=== PATIENT | female | born 1990 | race Caucasian/White ===

== ENCOUNTER 2019-07-08 10:30 | Inpatient (IN) | payer OTHER ==
[~2019-07-08 10:30] MED LIST: CITRIC ACID/SODIUM CITRATE 30 ML UNIT-DOSE CUP PO ONE; ELECTROLYTE-148 SOLN 1,000 ML IV SCH
[2019-07-08] MEDS: ELECTROLYTE-148 SOLN 1,000 ML IV SCH (11:15)
[2019-07-08 11:23] VITALS: BMI 35.4
[2019-07-08 12:07] LABS: BASO % 0.2 % (0-2.0); EOS % 1.3 % (0-4.5); HEMATOCRIT 37.9 % (32.4-45.2); HEMOGLOBIN 13.1 GM/dL (10.7-15.3); LYMPH % 13.9 % (8-40); MCH 28.3 pg (25.7-33.7); MCHC 34.5 g/dl (32.0-36.0); MEAN CELL VOLUME 82.2 fl (80-96); MEAN PLT VOLUME 8.7 fl (7.5-11.1); MONO % 7.2 % (3.8-10.2); NEUT % 77.4 % (42.8-82.8); PLATELET COUNT 179 K/MM3 (134-434); RBC 4.62 M/mm3 (3.60-5.2); WHITE BLOOD COUNT 10.8 K/mm3 (4.0-10.0)
[2019-07-08 12:24] LABS: BILIRUBIN,TOTAL 0.4 mg/dL (0.2-1); BLOOD UREA NITROGEN 6.7 mg/dL (7-18); CALCIUM 9.2 mg/dL (8.5-10.1); CREATININE 0.4 mg/dL (0.55-1.3); TOT PROT 6.7 g/dl (6.4-8.2)
[2019-07-08] MEDS ORDERED: morphine SULFATE/PF 0.5 MG/ML (2cc Syringe - QUVA) EP ONE (12:24)
[2019-07-08 14:20] LABS: INR 0.99 (0.83-1.09); PROTHROMBIN TIME (PATIENT) 11.7 SEC (9.7-13.0)
[2019-07-08 14:22] LABS: ACTIVATED PTT 28.9 SECONDS (25.2-36.5)
[2019-07-08] MEDS ORDERED: morphine SULFATE/PF 0.5 MG/ML (2cc Syringe - QUVA) ONE (15:37)
[2019-07-08] MEDS ORDERED: ceFAZolin SODIUM 1 GM VIAL ONE (15:38)
[2019-07-08] MEDS ORDERED: KETOROLAC TROMETHAMINE 30 MG/1 ML VIAL ONE ×2 (16:11→17:16)
[2019-07-08] MEDS ORDERED: OXYTOCIN 10 UNITS/ML VIAL ONE (16:46)
[2019-07-08] MEDS ORDERED: OXYTOCIN 20 UNITS in 0.9% NS 20 UNIT/1,000 ML INFUS.BAG IV ONE (17:05)
[2019-07-08] MEDS: OXYTOCIN 20 UNITS in 0.9% NS 20 UNIT/1,000 ML INFUS.BAG IV SCH (17:10)
[2019-07-08] MEDS ORDERED: ONDANSETRON 4 MG/2 ML VIAL ONE ×2 (17:17→18:50)
[2019-07-08] MEDS ORDERED: oxyCODONE HCL 5 MG TABLET PO PRN (17:19)
[2019-07-08] MEDS ORDERED: METHYLERGONOVINE MALEATE 0.2 MG/1 ML AMP IM PRN (17:19)
[2019-07-08] MEDS ORDERED: IBUPROFEN 800 MG/8 ML IJ IVPB PRN (17:19)
[2019-07-08] MEDS: ONDANSETRON 4 MG/2 ML VIAL IVPUSH PRN ×2 (17:25→18:55)
--- NOTE | 2019-07-08 17:27 | HP ---
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: No: Alzheimer's, CVA, Dementia, Migraine, Multiple Sclerosis, Peripheral Neuropathy, Parkinson's, Seizure, Syncope, TIA, Vertigo, Other Cardiovascular: No: AFIB, Aneurysm, Aortic Insufficiency, Aortic Stenosis, CAD, CHF, Deep Vein Thrombosis, HTN, Hyperlipdemia, MT, Mitral Insufficiency, Mitral Stenosis, Murmur, Pulmonary Hypertension, Other Pulmonary: No: Asthma, Bronchitis, Cancer, COPD, O2 Dependent, Pneumonia, Previously Intubated, Pulmonary Embolus, Pulmonary Fibrosis, Sleep Apnea, Other Gastrointestinal: No: Ascites, Cancer, Constipation, Crohn's Disease, Diverticulitis, Diverticulosis, Esophageal Varices, Gastritis, GERD, GI Bleed, Hemorrhoids, Hiatal Hernia, Inflamatory Bowel Disease, Irritable Bowel Disease, Pancreatitis, Peptic Ulcer Disease, Ulcerative Colitis, Other Hepatobiliary: No: Cirrhosis, Cholelithiasis, Cholecystitis, Choledocholithiasis , Hepatitis A, Hepatitis B, Hepatitis C, Other Renal/: No: Renal Failure, Renal Inusuff, BPH, Cancer, Hematuria, Hemodialysis , Neurogenic Bladder, Renal Calculi, UTI, Other Reproductive: No: Ectopic , Endometriosis, Fibroids, PID, Polycystic Ovary Syndrome, Postmenopausal, Other ...: 2 ...Para: 1 ...Term: 1 ...: 0 ...Spon : 0 ...Induced : 0 ...Multiple Gestation: 0 ... Weeks Gestation by Dates: 36.2 ...EDC by Dates: 08/03/19 Heme/Onc: No: Anemia, B12 Deficiency, Bleeding Disorder, Cancer, Current Chemotherapy, Current Radiation Therapy, Hemochromatosis, Hypercoaguable State, Myeloproliferative Synd, Sickle Cell Disease, Sickle Cell Trait, Thrombocytopenia, Other Infectious Disease: No: AIDS, C-Diff, Herpes Zoster, HIV, MRSA, STD's, Tuberculosis, VREF, Other Psych: No: Addictions, Anxiety, Bipolar, Depression, Panic, Psychosis, Schizophrenia, Other Musculoskeletal: No: Bursitis, Chronic low back pain, Hemiparesis, Hemiplegia, Osteoarthritis, Paraplegia, Other Rheumatology: No: Fibromyalgia, Gout, Lupus, Rheumatoid Arthritis, Sarcoidosis, Vasculitis, Other ENT: No: Allergic Rhinitis, Sinusitis, Other Endocrine: No: Raymond's Disease, Lisa's Disease, Diabetes Insipidus, Diabetes Mellitus, Hyperparathyroidism, Hyperthyroidism, Hypothyroidism, Osteopenia, SIADH, Other Dermatology: No: Basal Cell, Cellulitis, Eczema, Melanoma, Psoriasis, Squamous Cell, Other - Past Surgical History Past Surgical History: No: None, AAA Repair, AICD, Amputation, Appendectomy, Arthrosocopy, AV Fistula/Graft, Bariatric Surgery, Breast Biopsy, Bypass, CABG, Carotid Endarterectomy, Cataract Removal, Cholecystectomy, Colectomy, Colonoscopy, Colostomy, Craniotomy, , Cystectomy, Hernia Repair, Hysterectomy, Ileal Conduit, Ileosotomy, Joint Replacement, Kidney Transplant, Laminectomy, Liver Transplant, Mastectomy, Nephrectomy, Oopherectomy, Orchiectomy, Permanent Pacemaker, Prostatectomy, Splenectomy, Stent, Thoracotomy , TURP, Tonsillectomy, Tubal Ligation, Upper Endoscopy, Valve Replacement, Vasectomy, Vein Stripping/Ligation Hx Myomectomy: No Hx Transabdominal Cerclage: No - Advance Directives Advance Directives: Yes: Living Will - Smoking History Smoking history: Never smoked Have you smoked in the past 12 months: No - Alcohol/Substance Use Hx Alcohol Use: No History of Substance Use: reports: None - Social History Usual Living Arrangement: Yes: With Spouse Do you think of yourself as: Straight/Heterosexual ADL: Independent History of Recent Travel: No Home Medications - Allergies Allergies/Adverse Reactions: Allergies Allergy/AdvReac Type Severity Reaction Status Date / Time No Known Allergies Allergy Verified 07/08/19 11:02 - Home Medications Home Medications: Ambulatory Orders Vitamins (Sjr) - 1 tab PO DAILY 07/08/19 Family Medical History Family History: Denies Review of Systems - Review of Systems Constitutional: reports: No Symptoms Eyes: reports: No Symptoms HENT: reports: No Symptoms Neck: reports: No Symptoms Cardiovascular: reports: No Symptoms Respiratory: reports: No Symptoms Gastrointestinal: reports: No Symptoms Genitourinary: reports: No Symptoms Breasts: reports: No Symptoms Reported Musculoskeletal: reports: No Symptoms Integumentary: reports: No Symptoms Neurological: reports: No Symptoms Endocrine: reports: No Symptoms Hematology/Lymphatic: reports: No Symptoms Psychiatric: reports: No Symptoms Physical Exam - Maternity Vital Signs: Vital Signs Temperature 98.3 F 07/08/19 10:45 Pulse Rate 88 07/08/19 10:45 Respiratory Rate 18 07/08/19 10:45 Blood Pressure 131/75 07/08/19 10:45 O2 Sat by Pulse Oximetry (%) Constitutional: Yes: Well Nourished, No Distress, Calm Eyes: Yes: WNL, Conjunctiva Clear, EOM Intact HENT: Yes: WNL, Atraumatic, Normocephalic Neck: Yes: WNL, Supple, Trachea Midline Cardiovascular: Yes: WNL, Regular Rate and Rhythm Lungs: Clear to auscultation Breast(s): Yes: WNL - Abdominal Exam/OB Fundal Height: 36 Number of Fetuses: Single Presentation: Vertex Contractions: Yes Regularity: Regular Intensity: Mod/Strong Monitor Mode: External Heart Rate (range): 130 Heart Rate Location: [facility] Category: I Accelerations: None Decelerations: None - Vaginal Exam/OB Vaginal Bleediing: No Speculum Exam: No Dilatation (cm): 3 Effacement (%): 60 Amniotic Membrane Status: Intact Presentation: Vertex/Position Station: -2 - Physical Exam Musculoskeletal: Yes: WNL Extremities: Yes: WNL Edema: Yes Edema: LUE: 1+, RUE: 1+, LLE: 1+, RLE: 1+ Integumentary: Yes: WNL Deep Tendon Reflex Grade: Normal +2 ...Motor Strength: WNL Psychiatric: Yes: WNL, Alert, Oriented - Labs Lab Results: CBC, BMP 07/08/19 11:30 07/08/19 11:23 Hemorrhage Risk Assessment - Risk Factors Medium Risk Factors: Yes: None High Risk Factors: Yes: None Risk Score: 1 Risk Level: Medium Risk Assessment/Plan for repeat lt c s , in active labor, and srom in the l and d
--- NOTE | 2019-07-08 17:28 | OP ---
Operative Note - Note: Operative Date: 07/08/19 Pre-Operative Diagnosis: repeat c s in labor, and srom Operation: repeat lt c s Findings: n/ a Post-Operative Diagnosis: Same as Pre-op Surgeon: Tk Small Lieutenant Colonel: Bartolome Anguiano Anesthesiologist/COMMISSIONER CONSERVATION OF RESOURCES: Nabeel Bishop Anesthesia: Spinal Estimated Blood Loss (mls): 500 (no complications ) Operative Report Dictated: Yes
[2019-07-08] MEDS ORDERED: KETOROLAC TROMETHAMINE 30 MG/1 ML VIAL IVPUSH ONE (17:36)
[2019-07-09] MEDS: ACETAMINOPHEN 325 MG TABLET (FP) PO PRN ×3 (05:11→21:36)
[2019-07-09] MEDS: SIMETHICONE 80 MG TAB.CHEW (FP) PO PRN ×3 (05:11→21:35)
[2019-07-09] MEDS: OXYTOCIN 20 UNITS in 0.9% NS 20 UNIT/1,000 ML INFUS.BAG IV SCH ×2 (06:54→19:33)
--- NOTE | 2019-07-09 08:21 | PN ---
Progress Note (short form) - Note Progress Note: Anesthesia/pain Pt seen and examined S:Alert and oriented, comfortable O: Vital Signs Temperature 98.7 F 07/09/19 05:01 Pulse Rate 79 07/09/19 05:01 Respiratory Rate 20 07/09/19 05:56 Blood Pressure 111/54 L 07/09/19 05:01 O2 Sat by Pulse Oximetry (%) 100 07/08/19 18:40 CBC, BMP 07/08/19 11:30 07/08/19 11:23 A/P: s/p c section Doing well post op Continue current care Azeem Prutet MD
[2019-07-09 08:31] LABS: BASO % 0.2 % (0-2.0); EOS % 0.5 % (0-4.5); HEMATOCRIT 35.1 % (32.4-45.2); HEMOGLOBIN 11.9 GM/dL (10.7-15.3); LYMPH % 9.1 % (8-40); MCH 27.9 pg (25.7-33.7); MCHC 33.7 g/dl (32.0-36.0); MEAN CELL VOLUME 82.8 fl (80-96); MEAN PLT VOLUME 8.4 fl (7.5-11.1); MONO % 8.1 % (3.8-10.2); NEUT % 82.1 % (42.8-82.8); PLATELET COUNT 159 K/MM3 (134-434); RBC 4.24 M/mm3 (3.60-5.2); WHITE BLOOD COUNT 11.6 K/mm3 (4.0-10.0)
--- NOTE | 2019-07-09 08:50 | PN ---
Post Progress Note Post Day: 1 Type of Delivery: Repeat C/S Vital Signs: Vital Signs Temperature 98.7 F 07/09/19 05:01 Pulse Rate 79 07/09/19 05:01 Respiratory Rate 20 07/09/19 05:56 Blood Pressure 111/54 L 07/09/19 05:01 O2 Sat by Pulse Oximetry (%) 100 07/08/19 18:40 Breast Exam: Yes: Soft Uterus: Yes: Fundus Firm, Fundus below umbilicus, Non-tender Incision: Yes: Dressing dry and intact, Sutures intact Abdomen/GI: Yes: Abdomen soft, Passing flatus, Tolerating PO Lochia: Yes: Serosa Lochia, amount: Small Extremities: Yes: Calves non-tender Perineum: Yes: Intact Activity: Ambulating (doing well, will be oob this am ) - Labs Labs: CBC WBC 10.8 K/mm3 (4.0-10.0) H 07/08/19 11:30 RBC 4.62 M/mm3 (3.60-5.2) 07/08/19 11:30 Hgb 13.1 GM/dL (10.7-15.3) 07/08/19 11:30 Hct 37.9 % (32.4-45.2) 07/08/19 11:30 MCV 82.2 fl (80-96) 07/08/19 11:30 MCH 28.3 pg (25.7-33.7) 07/08/19 11:30 MCHC 34.5 g/dl (32.0-36.0) 07/08/19 11:30 RDW 14.0 % (11.6-15.6) 07/08/19 11:30 Plt Count 179 K/MM3 (134-434) 07/08/19 11:30 MPV 8.7 fl (7.5-11.1) 07/08/19 11:30 Absolute Neuts (auto) 8.4 K/mm3 (1.5-8.0) H 07/08/19 11:30 Neutrophils % 77.4 % (42.8-82.8) 07/08/19 11:30 Lymphocytes % 13.9 % (8-40) 07/08/19 11:30 Monocytes % 7.2 % (3.8-10.2) 07/08/19 11:30 Eosinophils % 1.3 % (0-4.5) 07/08/19 11:30 Basophils % 0.2 % (0-2.0) 07/08/19 11:30 Nucleated RBC % 0 % (0-0) 07/08/19 11:30
[2019-07-09] MEDS: ENOXAPARIN NA (PORCINE) 40 MG/0.4 ML DISP.SYRIN SQ SCH (09:38)
--- NOTE | 2019-07-09 13:41 | OP ---
DATE OF OPERATION: 07/08/2019 PREOPERATIVE DIAGNOSIS: Repeat low-transverse section, in labor. POSTOPERATIVE DIAGNOSIS: Repeat low-transverse section, in labor. PROCEDURE: Repeat low-transverse section. SURGEON: Tk Small MD LEAD PRESSMAN: BERNADINE Wells ANESTHESIOLOGIST: Nabeel Bishop MD. Spinal anesthesia. INDICATION: This is a 29-year-old female patient, 36 weeks 2 days , complaining of pink discharge on July 07, no pain; however, patient came to the office on July 08 in the morning complaining about eliz every 10 to 15 minutes all night and that she cannot sleep. The patient was examined. She was 2 to 3 cm and patient was in pain, 8/10, with contraction. So patient was sent in to the hospital for delivery today because the patient's pain level is 8/10 and eliz every 10 minutes, with previous low-transverse section, and patient's cervix is already 2 to 3 cm dilated. All the risks, benefits, and alternatives of a were explained. The patient chose to have a repeat section. The patient was placed on a monitor, observed all day, and the patient was still eliz every 5 to 10 minutes, so the decision was made to do the patient's section today; however, there was an emergency in the labor room, so the case was postponed for a little bit. Other than that, heart rate tracing was normal. Finally, the patient was taken to the OR, placed on the operating table in supine position after the spinal anesthesia was obtained. The patient's abdomen and pelvis was prepped and draped in the usual sterile manner. Pfannenstiel incision was made. Incision was made through the skin and subcutaneous tissue until the fascia was nicked in the midline and partially extended bilaterally. Intraperitoneal cavity was entered. Bladder flap was created and the low transverse segment was entered. Baby delivered from ERA position. Baby was handed over to professor of surgery after umbilical cord doubly clamped and cut. Placenta was removed. Uterus was closed in a single layer, 1st layer with interlocking Vicryl sutures. Good hemostasis. Both ovaries, fallopian tubes, uterus were within normal limits. No complication, tolerated the procedure well. Bladder flap was closed, peritoneum was closed, fascia was closed, and both gutters cleaned. Ovaries, fallopian tubes within normal limits. Draining clear urine. Blood loss about 500 mL. No complications. Tolerated procedure well, transferred to recovery room in stable condition. MD HARSHIL WESLEY/[id number]
[2019-07-09] MEDS ORDERED: BISACODYL 10 MG SUPP.RECT RC PRN (17:19)
[2019-07-09] MEDS: IBUPROFEN 600 MG TABLET (FP) PO PRN ×2 (17:44→21:35)
[2019-07-09] MEDS: ELECTROLYTE-148 SOLN 1,000 ML IV SCH (19:35)
[2019-07-09] MEDS: SENNOSIDES/DOCUSATE COMBO (SENNA PLUS) TABLET (UD) PO PRN (21:36)
[2019-07-10] MEDS: IBUPROFEN 600 MG TABLET (FP) PO PRN ×3 (07:41→20:30)
[2019-07-10] MEDS: ACETAMINOPHEN 325 MG TABLET (FP) PO PRN ×3 (07:41→20:29)
[2019-07-10] MEDS: SIMETHICONE 80 MG TAB.CHEW (FP) PO PRN ×3 (07:42→20:29)
--- NOTE | 2019-07-10 08:13 | PN ---
Post Progress Note Post Day: 2 Type of Delivery: Repeat C/S Vital Signs: Vital Signs Temperature 97.9 F 07/10/19 08:04 Pulse Rate 79 07/10/19 08:04 Respiratory Rate 18 07/10/19 08:04 Blood Pressure 111/65 07/10/19 08:04 O2 Sat by Pulse Oximetry (%) 100 07/08/19 18:40 Breast Exam: Yes: Soft Uterus: Yes: Fundus Firm, Fundus below umbilicus Incision: Yes: Dressing dry and intact, Sutures intact Abdomen/GI: Yes: Abdomen soft, Passing flatus, Tolerating PO Lochia: Yes: Serosa Lochia, amount: Small Extremities: Yes: Calves non-tender Perineum: Yes: Intact Activity: Ambulating (doing well, dc pt home tomorrow ) - Labs Labs: CBC WBC 11.6 K/mm3 (4.0-10.0) H 07/09/19 08:11 RBC 4.24 M/mm3 (3.60-5.2) 07/09/19 08:11 Hgb 11.9 GM/dL (10.7-15.3) 07/09/19 08:11 Hct 35.1 % (32.4-45.2) 07/09/19 08:11 MCV 82.8 fl (80-96) 07/09/19 08:11 MCH 27.9 pg (25.7-33.7) 07/09/19 08:11 MCHC 33.7 g/dl (32.0-36.0) 07/09/19 08:11 RDW 14.0 % (11.6-15.6) 07/09/19 08:11 Plt Count 159 K/MM3 (134-434) 07/09/19 08:11 MPV 8.4 fl (7.5-11.1) 07/09/19 08:11 Absolute Neuts (auto) 9.6 K/mm3 (1.5-8.0) H 07/09/19 08:11 Neutrophils % 82.1 % (42.8-82.8) 07/09/19 08:11 Lymphocytes % 9.1 % (8-40) D 07/09/19 08:11 Monocytes % 8.1 % (3.8-10.2) 07/09/19 08:11 Eosinophils % 0.5 % (0-4.5) 07/09/19 08:11 Basophils % 0.2 % (0-2.0) 07/09/19 08:11 Nucleated RBC % 0 % (0-0) 07/09/19 08:11
--- NOTE | 2019-07-10 08:16 | DS ---
Physical Exam-ABSENCE MANAGEMENT CONSULTANT Vital Signs: Vital Signs Temperature 97.9 F 07/10/19 08:04 Pulse Rate 79 07/10/19 08:04 Respiratory Rate 18 07/10/19 08:04 Blood Pressure 111/65 07/10/19 08:04 O2 Sat by Pulse Oximetry (%) 100 07/08/19 18:40 Constitutional: Yes: Well Nourished, No Distress, Calm Eyes: Yes: WNL, Conjunctiva Clear, EOM Intact HENT: Yes: WNL, Atraumatic, Normocephalic Neck: Yes: WNL, Supple, Trachea Midline Cardiovascular: Yes: WNL, Regular Rate and Rhythm Respiratory: Yes: WNL, Regular, CTA Bilaterally Gastrointestinal: Yes: WNL, Normal Bowel Sounds, Soft ...Rectal Exam: Yes: WNL Renal/: Yes: WNL Pelvis: Yes: WNL External Genitalia: Yes: Normal Internal Exam Deferred: Yes Vaginal Exam: Yes: Normal Cervix: Yes: Normal Uterus: Yes: Normal Adnexa: Normal: Bilateral ....Post : Yes: Uterus firm, Uterus non-tender Breast(s): Yes: WNL Musculoskeletal: Yes: WNL Extremities: Yes: WNL Edema: Yes Integumentary: Yes: WNL Wound/Incision: Yes: Clean/Dry, Well Approximated Neurological: Yes: WNL, Alert, Oriented ...Motor Strength: WNL Psychiatric: Yes: WNL, Alert, Oriented Labs: CBC, BMP 07/09/19 08:11 07/08/19 11:23 Delivery - Delivery Section: Repeat Type of Anesthesia: Spinal Episiotomy/Laceration: None EBL (cc): 500 Delivery, Single - Stages of Labor Date 1st Stage Initiatied: 07/08/19 Time 1st Stage Initiated: 12:00 Date of Delivery: 07/08/19 Time of Delivery: 16:08 Time Placenta Delivered: 16:09 - Condition of Orchid Superintendent/Cosmetic Counselor Present: Yes Name: Luis Antonio Morocho Gender: Female Weight: 2.381 kg Position: Right, OA Total Hours ROM (Hrs/Mins): 0Hrs/34Mins - 1 Minute Total Score: 8 5 Minutes Total Score: 9 - [place] Feeding Plan Initial Plan: Exclusive throughout hospitalization Discharge Summary Problems reviewed: Yes Reason For Visit: Procedures: Principal: repeat lt c s Hospital Course: uneventful Health Concerns: none Plan of Treatment: oob as much as possible Condition: Good - Instructions Diet, Activity, Other Instructions: Physical activity Resume your normal everyday activity as tolerated no heavy lifting or exercise until seen by your surgeon. You may walk unlimited marv of and climb stairs. You may resume driving the car when you feel safe and comfortable behind the wheel. No sexual activity as instructed. Wound care If you have a bandage, leave it on, and keep dry for 48-72 hours. After that time discard the outer bandage. If they are tapes on the skin under the out of bandage leave them in place. They will peel off in the next 7 to 10 days. Do Not Peel them off. You may shower the day after surgery. If there are tapes present on the skin, you may shower over them. Diet There are no dietary restrictions. Eat healthy, high-fiber foods. Drink 6 to 8 glasses of liquid each day. This will assist in keeping your bowels are regular. Pain management You may take Tylenol or acetaminophen or Ibuprofen (for example, Motrin, Advil etc.) from my pain prescription medication is ordered should be taken as prescribed for moderate to severe pain. Call MD for any of the following:call dr hernadez office for 2 weeks appoint Severe pain not relieved by medication Fever of 101 or higher Excessive bleeding or drainage on dressing Inability to urinate Disposition: HOME - Home Medications Comprehensive Discharge Medication List: Ambulatory Orders Vitamins (Sjr) - 1 tab PO DAILY 07/08/19 Prescription Drug Monitoring Program (I-STOP) results: I-STOP reviewed and no issues identified
[2019-07-10] MEDS: ENOXAPARIN NA (PORCINE) 40 MG/0.4 ML DISP.SYRIN SQ SCH (09:43)
[2019-07-10] MEDS ORDERED: FLU VACCINE QUAD 60 MCG/0.5 ML (MDV 19-20) IM ONE (10:00)
[2019-07-10] MEDS ORDERED: FLU VACC QS2019-20(6MOS UP)/PF 60 MCG/0.5 ML SYRINGE IM ONE (10:00)
[2019-07-10] MEDS: SENNOSIDES/DOCUSATE COMBO (SENNA PLUS) TABLET (UD) PO PRN (20:29)
[2019-07-10] MEDS: oxyCODONE HCL 5 MG TABLET PO PRN (20:30)
[2019-07-11] MEDS: oxyCODONE HCL 5 MG TABLET PO PRN (07:39)
[2019-07-11] MEDS: ACETAMINOPHEN 325 MG TABLET (FP) PO PRN (07:40)
[2019-07-11] MEDS: IBUPROFEN 600 MG TABLET (FP) PO PRN (07:40)
[2019-07-11 09:31] VITALS: BP 126/76; PULSE 78; TEMP 97.9
[2019-07-11] MEDS: ENOXAPARIN NA (PORCINE) 40 MG/0.4 ML DISP.SYRIN SQ SCH (09:43)
[2019-07-11 11:52] LABS: BASO % 0.6 % (0-2.0); EOS % 2.2 % (0-4.5); HEMATOCRIT 34.6 % (32.4-45.2); HEMOGLOBIN 11.9 GM/dL (10.7-15.3); LYMPH % 17.9 % (8-40); MCH 28.5 pg (25.7-33.7); MCHC 34.4 g/dl (32.0-36.0); MEAN CELL VOLUME 82.8 fl (80-96); MEAN PLT VOLUME 8.1 fl (7.5-11.1); NEUT % 72.3 % (42.8-82.8); PLATELET COUNT 193 K/MM3 (134-434); RBC 4.18 M/mm3 (3.60-5.2); RDW 14.1 % (11.6-15.6); WHITE BLOOD COUNT 7.5 K/mm3 (4.0-10.0)
--- NOTE | 2019-07-12 14:37 | PATH ---
Surgical Pathology Report Patient Name: FIDE CIFUENTES [facility]. Rec. 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 TRIVASCULAR CORD. Electronically Signed Dimitri Salazar M.D. Gross Description The specimen is received fresh labeled placenta and is a 416 gram, 17.0 x 13.0 x 3.1 cm. placenta with attached membranes and umbilical cord. The attached membranes are qiu, translucent with focal opacities and insert marginally. The umbilical cord measures 26 cm. in length and averages 1.3 cm. in diameter. The cord inserts eccentrically, 3.5 cm. to the nearest margin. No true knots or strictures are identified. Cut surface of the umbilical cord reveals 3 vessels. The surface is sung-blue with minimal fibrin deposition and appropriate caliber vessels. The maternal surface is red-brown with focal defects. Sectioning reveals red-brown, spongy parenchyma. No lesions are identified. Domestic Violence Advocate sections are submitted in three cassettes as follows: 1- membrane rolls and umbilical cord; 2-3- full thickness sections of placenta. /07/11/2019 saudi/07/11/2019
== END 2019-07-11 11:30 | disposition home or self-care (01) | DRG 540 ==
LOC: JLDR 10:30 → J3W 19:07
PROVIDERS: ADMIT Obstetrics & Gynecology; ATTEND Obstetrics & Gynecology
PROC: 10D00Z1 Extraction of Products of Conception, Low, Open Approach (ICD-10-PCS; principal; 2019-07-08)
DX: O34.211 Maternal care for low transverse scar from previous cesarean delivery (principal); N85.8 Other specified noninflammatory disorders of uterus; O60.14X0 Preterm labor third trimester with preterm delivery third trimester, not applicable or unspecified; O41.1230 Chorioamnionitis, third trimester, not applicable or unspecified; Z3A.36 36 weeks gestation of pregnancy; Z37.0 Single live birth
CPT/HCPCS: 36415; 80053; 85025; 85610; 85730; 86593; 86850; 86900; 86901; 87389; 88307-TC; 90686; G0008

== ENCOUNTER 2022-10-09 23:17 | Emergency (ER) | payer OTHER ==
[2022-10-09 23:25] VITALS: BP 121/62; PULSE 86; RESP 18; TEMP 97.8; BMI 30.6
[2022-10-10 00:22] LABS: BASO % 0.9 % (0-2.0); EOS % 4.3 % (0-4.5); HEMATOCRIT 38.6 % (32.4-45.2); HEMOGLOBIN 13.6 GM/dL (10.7-15.3); LYMPH % 31.4 % (8-40); MCH 27.8 pg (25.7-33.7); MCHC 35.1 g/dl (32.0-36.0); MEAN CELL VOLUME 79.1 fl (80-96); MEAN PLT VOLUME 8.7 fl (7.5-11.1); MONO % 5.7 % (3.8-10.2); NEUT % 57.7 % (42.8-82.8); PLATELET COUNT 245 10^3/uL (134-434); RBC 4.88 M/mm3 (3.60-5.2); RDW 13.2 % (11.6-15.6); WHITE BLOOD COUNT 9.5 K/mm3 (4.0-10.0)
[2022-10-10 00:43] LABS: CALCIUM 9.5 mg/dL (8.5-10.1)
[2022-10-10 00:44] LABS: ALBUMIN 4.1 g/dl (3.4-5.0); BLOOD UREA NITROGEN 18.4 mg/dL (7-18)
[2022-10-10 00:47] LABS: CREATININE 0.8 mg/dL (0.55-1.3)
[2022-10-10 00:48] LABS: PH,URINE 6.5 (5.0-8.0); URINE APPEARANCE CLEAR; URINE BILIRUBIN NEGATIVE (NEGATIVE); URINE COLOR YELLOW; URINE GLUCOSE (UA) NEGATIVE (NEGATIVE); URINE KETONE NEGATIVE (NEGATIVE); URINE LEUK ESTERASE NEGATIVE (NEGATIVE); URINE NITRITE NEGATIVE (NEGATIVE); URINE PROTEIN NEGATIVE (NEGATIVE); URINE UROBILINOGEN 0.2 mg/dL (0.2-1.0)
[2022-10-10 00:49] LABS: BILIRUBIN,TOTAL 0.3 mg/dL (0.2-1); TOT PROT 7.5 g/dl (6.4-8.2)
[2022-10-10 00:51] LABS: HCG,QUALITATIVE URINE Negative
== END 2022-10-10 02:02 | disposition home or self-care (01) ==
LOC: JER 23:17
DX: R10.30 Lower abdominal pain, unspecified (principal)
CPT/HCPCS: 36415; 74176-TC; 80053; 81003; 84703; 85025; 87086; 99284-25